=== PATIENT | female | born 1995 | race African-American/Black ===

== ENCOUNTER 2016-07-26 14:16 | Emergency (ER) | payer MEDICAID ==
[~2016-07-26] VITALS: Ht 165.1 cm; Wt 115.7 kg
[~2016-07-26 14:16] MED LIST: ALBU0.0939 IH
[2016-07-26 14:19] VITALS: BP 136/74
--- NOTE | 2016-07-26 14:26 | NUR ---
Patient ambulated to bed 08.
--- NOTE | 2016-07-26 14:26 | NUR ---
20/F BIB SELF C/O UPPER AND LOWER BACK PAIN X 2 WKS. PT STATED PT FELL FROM 2-3 STAIRS BY APT COMPLEX ; DENIES LOC , DYSURIA, DENIES INCONTINENCE. PT AMBULATORY WITH STEADY GAIT. HX OF SCOLIOSIS, ASTHMA. SKIN IS PINK/WARM/DRY; AAOX4, LUNGS CLEAR BL; HR EVEN AND REGULAR; PATIENT STATES PAIN OF 7/10 AT THIS TIME; PATIENT POSITIONED FOR COMFORT; HOB ELEVATED; BEDRAILS UP X2; BED DOWN. ER MD MADE AWARE OF PT STATUS.
--- NOTE | 2016-07-26 14:29 | NUR ---
Dr. Walker evaluating patient at bedside.
[2016-07-26] MEDS ORDERED: ONDANSETRON 4 MG ODT PO ONE (14:35)
[2016-07-26] MEDS ORDERED: CYCLOBENZAPRINE 10 MG TAB PO ONE (14:35)
[2016-07-26] MEDS ORDERED: ACETAMINOPHEN EXTRA STRENGTH 500 MG TAB PO ONE (14:35)
[2016-07-26] MEDS ORDERED: KETOROLAC 60 MG/2 ML VIAL IM ONE (14:35)
[2016-07-26 15:00] VITALS: BP 129/69
--- NOTE | 2016-07-26 15:00 | NUR ---
Patient discharged with v/s stable. Written and verbal after care instructions given and explained. Patient alert, oriented and verbalized understanding of instructions. Ambulatory with steady gait. All questions addressed prior to discharge. ID band removed. Patient advised to follow up with PMD. Rx of FLEXERIL given. Patient educated on indication of medication including possible reaction and side effects. Opportunity to ask questions provided and answered.
== END 2016-07-26 15:00 | disposition home or self-care (01) ==
LOC: MED 14:17
DX: S33.5XXA Sprain of ligaments of lumbar spine, initial encounter (principal); J45.909 Unspecified asthma, uncomplicated; Z88.1 Allergy status to other antibiotic agents; W01.0XXA Fall on same level from slipping, tripping and stumbling without subsequent striking against object, initial encounter; Y93.89 Activity, other specified; Y92.039 Unspecified place in apartment as the place of occurrence of the external cause; Y99.8 Other external cause status; R03.0 Elevated blood-pressure reading, without diagnosis of hypertension
CPT/HCPCS: 96372; 99284; J1885; S0119

== ENCOUNTER 2016-08-23 18:43 | Emergency (ER) | payer MEDICAID ==
[~2016-08-23] VITALS: Ht 165.1 cm; Wt 117.0 kg
[~2016-08-23 18:43] MED LIST changes: -ALBU0.0939 IH; +ALBUTEROL0.09 MG/A1 IH
[2016-08-23 18:56] VITALS: BP 149/95
--- NOTE | 2016-08-23 19:52 | NUR ---
TO ER BED 6
--- NOTE | 2016-08-23 20:26 | NUR ---
Patient being evaluated by physician at bedside with PA student.
--- NOTE | 2016-08-23 20:26 | NUR ---
20/F BIB FAMILY C/O CRAMPING TYPE PAIN TO ABDOMEN WITH NAUSEA AND VOMITING X 3 DAYS---X4 EPISODES OF EMESIS TODAY---DENIES DIARRHEA. PAIN 5/10 ACHING NON-RADIATING; AAOx4, PERRLA, BREATHING EVEN AND UNLABORED. ERMD NOTIFIED OF PATIENT STATUS.
--- NOTE | 2016-08-23 20:29 | NUR ---
FEMALE CHAPERONED FOR DR. VELARDE AND PA STUDENT DURING PELVIC EXAM
--- NOTE | 2016-08-23 21:10 | NUR ---
PT RESTING. VSS; PATIENT POSITIONED FOR COMFORT; HOB ELEVATED; BEDRAILS UP X2; BED DOWN. ER MD MADE AWARE OF PT STATUS.
--- NOTE | 2016-08-23 22:20 | NUR ---
PT RESTING. VSS; PATIENT POSITIONED FOR COMFORT; HOB ELEVATED; BEDRAILS UP X2; BED DOWN. ER MD MADE AWARE OF PT STATUS.
[2016-08-23 22:50] VITALS: BP 130/72
--- NOTE | 2016-08-23 22:50 | NUR ---
Patient discharged with v/s stable. Written and verbal after care instructions given and explained. Patient alert, oriented and verbalized understanding of instructions. Ambulatory with steady gait. All questions addressed prior to discharge. ID band removed. Patient advised to follow up with PMD. Rx of macrobid, flagyl, naprosyn given. Patient educated on indication of medication including possible reaction and side effects. Opportunity to ask questions provided and answered.
== END 2016-08-23 22:50 | disposition home or self-care (01) ==
LOC: MED 18:43
DX: N39.0 Urinary tract infection, site not specified (principal); A59.9 Trichomoniasis, unspecified; Z88.8 Allergy status to other drugs, medicaments and biological substances; J45.909 Unspecified asthma, uncomplicated; M41.9 Scoliosis, unspecified

== ENCOUNTER 2016-10-22 15:22 | Emergency (ER) | payer MEDICAID ==
[~2016-10-22] VITALS: Ht 165.1 cm; Wt 117.1 kg
[~2016-10-22 15:22] MED LIST changes: +ALBU0.0939 IH; -ALBUTEROL0.09 MG/A1 IH
[2016-10-22 15:37] VITALS: BP 126/78
[2016-10-22] MEDS ORDERED: KETOROLAC 60 MG/2 ML VIAL IM ONE (15:55)
[2016-10-22 16:27] VITALS: BP 126/78
== END 2016-10-22 16:26 | disposition home or self-care (01) ==
LOC: MED 15:22
DX: R05 Cough (principal); M54.6 Pain in thoracic spine; Z88.8 Allergy status to other drugs, medicaments and biological substances; J45.909 Unspecified asthma, uncomplicated
CPT/HCPCS: 96372; 99283; J1885

== ENCOUNTER 2016-11-28 21:07 | Emergency (ER) | payer MEDICAID ==
--- NOTE | 2016-11-28 21:25 | NUR ---
PATIENT LEFT WITHOUT BEING SEEN BY DR. COELHO . NO FURTHER CARE PROVIDED FOR PATIENT.
--- NOTE | 2016-11-28 21:35 | NUR ---
PT NAME WAS CALLED AGAIN BUT NO SHOW
== END 2016-11-28 21:25 | disposition left against medical advice (07) ==
LOC: MED 21:07
DX: M54.9 Dorsalgia, unspecified (principal); Z53.21 Procedure and treatment not carried out due to patient leaving prior to being seen by health care provider

== ENCOUNTER 2016-12-13 13:47 | Emergency (ER) | payer MEDICAID ==
[~2016-12-13] VITALS: Ht 165.1 cm; Wt 72.3 kg
[2016-12-13 13:56] VITALS: BP 114/81
--- NOTE | 2016-12-13 16:55 | NUR ---
PATIENT TO BED 7
--- NOTE | 2016-12-13 17:00 | NUR ---
21 F TO ED WITH C/O 5/10 INTERMITTENT SUPRAPUBIC SHARP/CRAMP PAIN X 1 WK WITH WHITE THICK VAGINAL DISCHARGE WITH ODOR; PT DENIES ANY N/V/D OR URINARY COMPLAINTS;SKIN IS PINK/WARM/DRY; AOX4 WITH EVEN AND STEADY GAIT; RR ARE EVEN AND UNLABORED; VSS; PATIENT POSITIONED FOR COMFORT; HOB ELEVATED; BED DOWN. ER MD MADE AWARE OF PT STATUS.
--- NOTE | 2016-12-13 17:45 | NUR ---
Patient discharged with v/s stable. Written and verbal after care instructions given and explained. Patient alert, oriented and verbalized understanding of instructions. Ambulatory with steady gait. All questions addressed prior to discharge. ID band removed. Patient advised to follow up with PMD. Rx of DIFLUCAN AND CIPRO given. Patient educated on indication of medication including possible reaction and side effects. Opportunity to ask questions provided and answered.
[2016-12-13 17:48] VITALS: BP 118/64
== END 2016-12-13 17:45 | disposition home or self-care (01) ==
LOC: MED 13:47
DX: N39.0 Urinary tract infection, site not specified (principal); B37.9 Candidiasis, unspecified; Z88.1 Allergy status to other antibiotic agents; J45.909 Unspecified asthma, uncomplicated
CPT/HCPCS: 81002; 81025; 99283

== ENCOUNTER 2017-03-23 13:22 | Emergency (ER) | payer MEDICAID ==
[~2017-03-23] VITALS: Ht 167.6 cm; Wt 122.9 kg
--- NOTE | 2017-03-23 13:47 | NUR ---
NO ANSWER IN ER LOBBY
[2017-03-23 13:49] VITALS: BP 129/73
--- NOTE | 2017-03-23 16:31 | NUR ---
Patient ambulated to bed 3. RN evaluating patient at bedside.
--- NOTE | 2017-03-23 16:32 | NUR ---
PATIENT PRESENTS TO ED WITH C/O PERSISTANT PRODUCTIVE COUGH, CHEST CONGESTION, SOB, X 1 WK FATIGUE, F/C ---ADDS FOAMY WHITE VAG DISCHARGE, FISHY ODOR---- HX---ASTHMA, SCOLIOSIS RX---ALBUTEROL . DENIES N/V/D; SKIN IS PINK/WARM/DRY; AAOX4 WITH EVEN AND STEADY GAIT; LUNGS CLEAR BL; HR EVEN AND REGULAR; PT DENIES ANY FEVER OR SOB AT THIS TIME; PATIENT STATES PAIN OF 8/10 AT THIS TIME; VSS; PATIENT POSITIONED FOR COMFORT; HOB ELEVATED; BEDRAILS UP X2; BED DOWN. ER MD MADE AWARE OF PT STATUS.
[2017-03-23] MEDS ORDERED: NACL 0.9% 2,000 ML IV ONE (17:40)
--- NOTE | 2017-03-23 19:11 | NUR ---
RECEIVED REPORT FROM VONDA RUIZ
[2017-03-23 19:30] VITALS: BP 113/63
--- NOTE | 2017-03-23 19:30 | NUR ---
Patient discharged with v/s stable. Written and verbal after care instructions given and explained. Patient verbalized understanding. Ambulatory with steady gait. All questions addressed prior to discharge. Advised to follow up with PMD.
--- NOTE | 2017-03-23 19:42 | NUR ---
Patient discharged with v/s stable. Written and verbal after care instructions given and explained. Patient alert, oriented and verbalized understanding of instructions. Ambulatory with steady gait. All questions addressed prior to discharge. ID band removed. Patient advised to follow up with PMD. Rx of FLAGYL AND MOTRIN given. Patient educated on indication of medication including possible reaction and side effects. Opportunity to ask questions provided and answered.
== END 2017-03-23 19:30 | disposition home or self-care (01) ==
LOC: MED 13:22
DX: J06.9 Acute upper respiratory infection, unspecified (principal); R30.0 Dysuria; Z88.6 Allergy status to analgesic agent
CPT/HCPCS: 71045; 81002; 81025; 96360; 99284; J7030

== ENCOUNTER 2017-09-26 22:25 | Emergency (ER) | payer MEDICAID ==
[~2017-09-26] VITALS: Ht 162.6 cm; Wt 127.1 kg
[2017-09-26 22:30] VITALS: BP 132/81
--- NOTE | 2017-09-26 22:34 | NUR ---
Patient ambulated to bed 2. RN evaluating patient at bedside.
--- NOTE | 2017-09-26 23:00 | NUR ---
PT BIB SELF C/O LUQ PAIN THAT RADIATES TO BACK FOR 2 DAYS W/ CONSTIPATION. ABD IS ROUND , SOFT, TENDER TO LUQ, ACTIVE BS X4. PT IS LAYING IN BED, IN NO APPARENT DISTRESS, WILL CONTINUE TO MONITOR. PMH ASTHMA, SCIATICA
--- NOTE | 2017-09-26 23:04 | NUR ---
Dr. Elder evaluating patient at bedside.
[2017-09-26] MEDS ORDERED: traMADol 50 MG TAB PO ONE (23:10)
--- NOTE | 2017-09-27 00:14 | NUR ---
Patient discharged with v/s stable. Written and verbal after care instructions given and explained. Patient alert, oriented and verbalized understanding of instructions. Ambulatory with steady gait. All questions addressed prior to discharge. ID band removed. Patient advised to follow up with PMD. Rx of mineral oil, miralax, tramadol given. Patient educated on indication of medication including possible reaction and side effects. Opportunity to ask questions provided and answered.
[2017-09-27 00:15] VITALS: BP 123/87
== END 2017-09-27 00:14 | disposition home or self-care (01) ==
LOC: MED 22:42
DX: K59.00 Constipation, unspecified (principal); R63.0 Anorexia; J45.909 Unspecified asthma, uncomplicated; Z79.899 Other long term (current) drug therapy; Z88.1 Allergy status to other antibiotic agents; Z88.8 Allergy status to other drugs, medicaments and biological substances
CPT/HCPCS: 74022; 81002; 81025; 99284

== ENCOUNTER 2017-11-30 20:15 | Emergency (ER) | payer MEDICAID ==
[~2017-11-30] VITALS: Ht 162.6 cm; Wt 128.4 kg
[2017-11-30 20:20] VITALS: BP 142/75
--- NOTE | 2017-11-30 20:36 | NUR ---
22 Y/O F W/C/O "RASH TO GROIN AND VAGINAL REGION X 1 WEEK." PT STATES SHES BEEN PUTTING A&D OINTMENT ON IT WITH NO REILIEF. PT ALSO STATES SHE WEARS "TIGHT LEGGINGS IN THE HEAT." PT DENIES ANY DISCHARGE. PT HAS RED BUMPS NOTED TO VAGINAL REGION. PT DENIES N/V/D; SKIN IS INTACT, PINK/WARM/DRY; AAOX4, PERRL, WITH EVEN AND STEADY GAIT; LUNGS CLEAR BL, BREATHING UNLABORED; HR EVEN AND REGULAR, BL PERIPHERAL PULSES PRESENT; BS ACTIVE X4, NO TENDERNESS TO PALPATION, NO HEPATOSPLENOMEGALLY PALPATED, RESONANT TO PERCUSSION; PT DENIES ANY FEVER, CP, SOB, OR COUGH AT THIS TIME; PT STATES 0/10 PAIN AT THIS TIME; VSS; PATIENT POSITIONED FOR COMFORT; HOB ELEVATED; BEDRAILS UP X2; BED DOWN.
--- NOTE | 2017-11-30 20:36 | NUR ---
PT AMBULATED TO BED 11 AT THIS TIME
[2017-11-30 21:22] VITALS: BP 138/72
--- NOTE | 2017-11-30 21:24 | NUR ---
Patient discharged with v/s stable. Written and verbal after care instructions given and explained. Patient alert, oriented and verbalized understanding of instructions. Ambulatory with steady gait. All questions addressed prior to discharge. ID band removed. Patient advised to follow up with PMD. Rx of NYSTATIN POWDER, NYSTATIN CREAM given. Patient educated on indication of medication including possible reaction and side effects. Opportunity to ask questions provided and answered.
== END 2017-11-30 21:22 | disposition home or self-care (01) ==
LOC: MED 20:15
DX: B37.49 Other urogenital candidiasis (principal); J45.909 Unspecified asthma, uncomplicated; Z88.6 Allergy status to analgesic agent; Z88.1 Allergy status to other antibiotic agents
CPT/HCPCS: 99283

== ENCOUNTER 2019-02-15 21:54 | Emergency (ER) | payer MEDICAID ==
[~2019-02-15] VITALS: Ht 162.6 cm; Wt 127.0 kg
[2019-02-15 22:01] VITALS: BP 138/76
--- NOTE | 2019-02-15 22:15 | NUR ---
23 Y/O FEMALE PRESENTS TO ED, C/O VAGINAL BLEED X2 WEEKS. PT STATES BLEEDING STARTED 2 WEEKS AGO AND WORSENED TODAY. STATES BLOOD IS DARK WITH CLOTS. PT C/O LOWER ABDOMINAL PAIN 8/10, WORSENING DURING MOVEMENT. PT STATES BEING FOR 1 MONTH NOW, HAS CRAMPING. ERMD MADE AWARE. WILL CONTINUE TO MONITOR.
--- NOTE | 2019-02-15 22:25 | NUR ---
ULTRASOUND AT BEDSIDE
[2019-02-15 22:56] LABS: BASOPHILS # (AUTO) 0.1 K/uL (0.00-0.22); BASOPHILS % (AUTO) 0.7 % (0.0-2.0); EOSINOPHILS # (AUTO) 0.1 K/uL (0-0.4); EOSINOPHILS % (AUTO) 0.6 % (0.0-4.0); HEMATOCRIT 35.5 % (36-48); HEMOGLOBIN 11.3 g/dL (12.0-16.0); LYMPHOCYTES # (AUTO) 2.5 K/uL (2.5-16.5); MEAN CORPUSCULAR HEMOGLOBIN 28 pg (27-31); MEAN CORPUSCULAR HGB CONC 32 g/dL (33-37); MEAN CORPUSCULAR VOLUME 87.4 fL (80-94); MONOCYTES # (AUTO) 0.6 K/uL (0.8-1.0); MONOCYTES % (AUTO) 4.7 % (1.7-9.3); NEUTROPHILS # (AUTO) 8.6 K/uL (1.8-7.7); PLATELET COUNT (AUTO) 278 K/uL (140-450); RED BLOOD CELL COUNT(AUTO) 4.06 MIL/uL (4.20-5.40); RED CELL DISTRIBUTION WIDTH 14.7 % (11.6-13.7); WHITE BLOOD COUNT (AUTO) 11.8 K/uL (4.8-10.8)
[2019-02-15 23:08] LABS: ALBUMIN 3.6 g/dL (3.4-5.0); CARBON DIOXIDE 30.6 mmol/L (21-32); CREATININE 0.8 mg/dL (0.6-1.3); POTASSIUM 3.6 mmol/L (3.5-5.1); TOTAL BILIRUBIN 0.2 mg/dL (0.0-1.0)
--- NOTE | 2019-02-16 01:00 | NUR ---
PT REFUSING TO COLLECT URINE SAMPLE AT THIS TIME, PT STATED THAT SHE IS UNABLE TO DUE TO HAVING VAGINAL BLEEDING. DR OSMAN MADE AWARE, OK NOT TO GET URINE SAMPLE. PT SET UP FOR PELVIC EXAM, AWAITING DR OSMAN AT THIS TIME.
[2019-02-16 02:00] VITALS: BP 121/77
--- NOTE | 2019-02-16 02:00 | NUR ---
PT DISCHARGED WITH PAPERWORK. NO MEDICATION RX PROVIDED. EDUCATED PT REGARDING D/C DIAGNOSIS. PT VERBALIZED UNDERSTANDING. TOLD PT WHEN TO FOLLOW UP WITH PCP AND WHEN TO RETURN TO ED. PT STABLE CONDITION. PT DENIED PELVIC EXAM. ALL QUESTIONS ANSWERED.
== END 2019-02-16 02:00 | disposition home or self-care (01) ==
LOC: MED 21:54
DX: O20.0 Threatened abortion (principal); O99.511 Diseases of the respiratory system complicating pregnancy, first trimester; J45.909 Unspecified asthma, uncomplicated; Z3A.01 Less than 8 weeks gestation of pregnancy; Z79.51 Long term (current) use of inhaled steroids; Z98.890 Other specified postprocedural states; Z88.6 Allergy status to analgesic agent; Z88.1 Allergy status to other antibiotic agents
CPT/HCPCS: 36415; 76817; 80053; 84702; 85025; 86900; 86901; 99284; Q0092

== ENCOUNTER 2019-02-17 14:25 | Emergency (ER) | payer MEDICAID ==
[~2019-02-17] VITALS: Ht 162.6 cm; Wt 127.0 kg
[2019-02-17 14:47] VITALS: BP 134/64
--- NOTE | 2019-02-17 14:59 | NUR ---
BIB SELF FOR POSSIBLE MISCARRIAGE W/ C/O CONTINOUS VAGINAL BLEEDING AND LOWER ABDOMINAL CRAMPING PAIN SINCE LAST SEEN 2 DAYS AGO. A2. HX: ASTHMA, SCOLIOSIS. PATIENT STATES PAIN OF 6/10 AT THIS TIME.PATIENT POSITIONED FOR COMFORT; HOB ELEVATED; BEDRAILS UP X1; BED DOWN. ER MD MADE AWARE OF PT STATUS.
--- NOTE | 2019-02-17 16:50 | NUR ---
Patient being reevaluated by DR PONCE at bedside.
--- NOTE | 2019-02-17 16:50 | NUR ---
Babatunde adan in [facility] - 02/17/19 at 1654 by MED1 Patient being reevaluated by DR PONCE at bedside.
[2019-02-17 16:54] VITALS: BP 119/61
== END 2019-02-17 16:54 | disposition home or self-care (01) ==
LOC: MED 14:25
DX: O03.9 Complete or unspecified spontaneous abortion without complication (principal); R03.0 Elevated blood-pressure reading, without diagnosis of hypertension; J45.909 Unspecified asthma, uncomplicated; Z79.899 Other long term (current) drug therapy
CPT/HCPCS: 36415; 84702; 99283

== ENCOUNTER 2019-09-12 17:02 | Emergency (ER) | payer MEDICAID, SELFPAY ==
[~2019-09-12] VITALS: Ht 170.2 cm; Wt 88.5 kg
[2019-09-12 17:31] VITALS: BP 98/49
--- NOTE | 2019-09-12 17:40 | NUR ---
PT AMBULATED TO ER BED 09
--- NOTE | 2019-09-12 17:42 | NUR ---
23 Y/O FEMALE C/O COUGH/HEADACHE X2 DAYS. PT DENIES SOB/FEVER. PT STATES SHE HAD A HEADACHE 2 DAYS AGO BUT NO PAIN AT THIS MOMENT. STATES SHE GOT TESTED FOR COVID ON FRIDAY. PT IS 4 MONTHS . PT STATES HER AND HER BOYFRIEND HAVE HAS COUGHS FOR 2 DAYS. DENIES ANY CHEST PAIN/ RESP EVEN AND UNLABORED. LUNG SOUNDS CLEAR IN BILAT LOBES. NO PMH
--- NOTE | 2019-09-12 18:40 | NUR ---
PT URINATED ON COMMODE IN ROOM
[2019-09-12 18:59] VITALS: BP 101/57
--- NOTE | 2019-09-12 18:59 | NUR ---
Patient discharged with v/s stable. Written and verbal after care instructions given and explained. Patient alert, oriented and verbalized understanding of instructions. Ambulatory with steady gait. All questions addressed prior to discharge. ID band removed. Patient advised to follow up with PMD. Rx of BENADRYL, ACETAMINOPHEN given. Patient educated on indication of medication including possible reaction and side effects. Opportunity to ask questions provided and answered.
== END 2019-09-12 18:59 | disposition home or self-care (01) ==
LOC: EEVIPCON 17:02 → MED 17:02
DX: B34.9 Viral infection, unspecified (principal); Z20.828 Contact with and (suspected) exposure to other viral communicable diseases; J45.909 Unspecified asthma, uncomplicated; Z88.1 Allergy status to other antibiotic agents; Z88.6 Allergy status to analgesic agent; Z79.899 Other long term (current) drug therapy
CPT/HCPCS: 81002; 99282

== ENCOUNTER 2020-02-02 07:35 | Inpatient (IN) | payer MEDICAID, SELFPAY ==
[~2020-02-02] VITALS: Ht 162.6 cm; Wt 123.8 kg
[2020-02-02 08:00] VITALS: BP 131/68
[2020-02-02] MEDS ORDERED: METHYLERGONOVINE 0.2 MG/ML AMP IM PRN ×2 (08:10→15:10)
[2020-02-02] MEDS ORDERED: OXYTOCIN 20 UNITS in LACTATED RINGERS 1,000 ML IV SCH (08:10)
[2020-02-02] MEDS ORDERED: NALBUPHINE 10 MG/ML AMP IVP PRN (08:10)
[2020-02-02] MEDS ORDERED: LACTATED RINGERS 1,000 ML IV SCH (08:10)
[2020-02-02] MEDS ORDERED: CARBOPROST 250 MCG/ML AMP IM PRN (08:10)
--- NOTE | 2020-02-02 08:25 | NUR ---
PATIENT HAS BEEN SCREENED AND CATEGORIZED LOW NUTRITION RISK. PATIENT WILL BE SEEN WITHIN 7 DAYS OF ADMISSION. 02/08/[address]
[2020-02-02] MEDS ORDERED: AMPICILLIN 2,000 MG in NACL 0.9% MINI-BAG PLUS 100 ML IV SCH (08:30)
[2020-02-02 09:47] LABS: BASOPHILS % (AUTO) 0.2 % (0.0-2.0); HEMOGLOBIN 10.6 g/dL (12.0-16.0); LYMPHOCYTES # (AUTO) 1.1 K/uL (2.5-16.5); LYMPHOCYTES % (AUTO) 7.5 % (20.5-51.1); MEAN CORPUSCULAR HEMOGLOBIN 29 pg (27-31); MEAN CORPUSCULAR HGB CONC 32 g/dL (33-37); MEAN CORPUSCULAR VOLUME 89.6 fL (80-94); MONOCYTES # (AUTO) 0.4 K/uL (0.8-1.0); NEUTROPHILS # (AUTO) 13.3 K/uL (1.8-7.7); NEUTROPHILS % (AUTO) 89.3 % (42.2-75.2); PLATELET COUNT (AUTO) 297 K/uL (140-450); RED BLOOD CELL COUNT(AUTO) 3.68 MIL/uL (4.20-5.40); RED CELL DISTRIBUTION WIDTH 14.3 % (11.6-13.7); WHITE BLOOD COUNT (AUTO) 14.9 K/uL (4.8-10.8)
[2020-02-02] MEDS ORDERED: ROPIVACAINE 0.2%/NS PREMIX 200 ML EPI ONE (09:52)
[2020-02-02 10:14] LABS: APPEARANCE,URINE CLOUDY (CLEAR); BILIRUBIN,URINE 1+ (NEGATIVE); BLOOD, URINE TRACE-I (NEGATIVE); COLOR,URINE BROWN (YELLOW); LEUKOCYTE ESTERASE ,URINE NEGATIVE (NEGATIVE); NITRITE, URINE NEGATIVE (NEGATIVE); PH,URINE 6.5 (5.0-9.0); UGLUCOSE NEGATIVE (NEGATIVE)
[2020-02-02 10:24] LABS: RBC,URINE 0-5 /HPF (0-5); WBC,URINE 0-5 /HPF (0-5)
[2020-02-02 11:42] LABS: ALBUMIN 2.6 g/dL (3.4-5.0); CARBON DIOXIDE 22.9 mmol/L (21-32); CREATININE 0.6 mg/dL (0.6-1.3); POTASSIUM 3.9 mmol/L (3.5-5.1); TOTAL BILIRUBIN 0.3 mg/dL (0.0-1.0)
[2020-02-02] MEDS ORDERED: OXYTOCIN 20 UNITS/LR PREMIX 1,000 ML IV ONE (12:19)
[2020-02-02] MEDS ORDERED: AMPICILLIN 1,000 MG in NACL 0.9% MINI-BAG PLUS 50 ML IV SCH (12:30)
[2020-02-02 13:11] LABS: BARBITURATE, URINE NEGATIVE ng/ml (NEG <=200); BENZODIAZEPINE, URINE NEGATIVE ng/mL (NEG <=200); CANNABINOID, URINE NEGATIVE ng/mL (NEG <=50); COCAINE, URINE NEGATIVE ng/mL (NEG <=300); OPIATE, URINE NEGATIVE ng/mL (NEG <=2000); PHENCYCLIDINE SCREEN,URINE NEGATIVE ng/mL (NEG <=25)
[2020-02-02] MEDS ORDERED: IBUPROFEN 800 MG TAB PO PRN (15:10)
[2020-02-02] MEDS ORDERED: BENZOCAINE/MENTHOL 20%-0.5% 60 GM CAN TP PRN (15:10)
[2020-02-02] MEDS ORDERED: OXYTOCIN 10 UNITS/ML VIAL IM PRN (15:10)
[2020-02-02] MEDS ORDERED: METHYLERGONOVINE 0.2 MG TAB PO PRN (15:10)
[2020-02-02] MEDS ORDERED: SODIUM PHOSPHATE 118 ML ENEM RC PRN (15:10)
[2020-02-02] MEDS ORDERED: HYDROcodone/APAP 5/325 MG 1 TAB TAB PO PRN (15:10)
[2020-02-02] MEDS ORDERED: oxyCODONE/APAP 5/325 MG 1 TAB TAB PO PRN (15:10)
[2020-02-02] MEDS ORDERED: TEMAZEPAM 15 MG CAP PO PRN (15:10)
[2020-02-02] MEDS ORDERED: DOCUSATE SOD/SENNA 50/8.6 MG 1 TAB PO SCH (21:00)
[2020-02-03 08:29] LABS: HEMOGLOBIN 9.7 g/dL (12.0-16.0)
[2020-02-03 09:53] LABS: HEPATITIS B SURFACE ANTIGEN Negative (Negative)
== END 2020-02-03 16:00 | disposition home or self-care (01) | DRG 560 ==
LOC: MLD 07:35 → OBSVTOIN 08:19 → EEVIPCON 08:19 → MFCC 18:00
PROVIDERS: ADMIT Obstetrics & Gynecology; ATTEND Obstetrics & Gynecology
PROC: 10D07Z6 Extraction of Products of Conception, Vacuum, Via Natural or Artificial Opening (ICD-10-PCS; principal; 2020-02-02)
PROC: 10907ZC Drainage of Amniotic Fluid, Therapeutic from Products of Conception, Via Natural or Artificial Opening (ICD-10-PCS; 2020-02-02)
PROC: 3E0R3BZ Introduction of Anesthetic Agent into Spinal Canal, Percutaneous Approach (ICD-10-PCS; 2020-02-02)
PROC: 00HU33Z Insertion of Infusion Device into Spinal Canal, Percutaneous Approach (ICD-10-PCS; 2020-02-02)
DX: O66.5 Attempted application of vacuum extractor and forceps (principal); O77.0 Labor and delivery complicated by meconium in amniotic fluid; E66.01 Morbid (severe) obesity due to excess calories; Z37.0 Single live birth; O99.214 Obesity complicating childbirth; Z20.828 Contact with and (suspected) exposure to other viral communicable diseases; Z88.5 Allergy status to narcotic agent; Z88.1 Allergy status to other antibiotic agents; Z3A.39 39 weeks gestation of pregnancy
CPT/HCPCS: 36415; 59409; 80053; 80305; 81001; 85018; 85025; 86592; 86762; 86870; 86886; 86900; 86901; 87340; 87653-90; G0378; J2300; J2590; J2795; J7120

== ENCOUNTER 2020-03-30 14:02 | Emergency (ER) | payer MEDICAID, SELFPAY ==
[~2020-03-30] VITALS: Ht 162.6 cm; Wt 122.5 kg
[2020-03-30 14:09] VITALS: BP 140/82
--- NOTE | 2020-03-30 14:22 | NUR ---
PATIENT AMBULATED TO BED 6.
[2020-03-30 15:17] LABS: BASOPHILS % (AUTO) 0.3 % (0.0-2.0); EOSINOPHILS % (AUTO) 0.3 % (0.0-4.0); HEMATOCRIT 36.2 % (36-48); HEMOGLOBIN 11.4 g/dL (12.0-16.0); LYMPHOCYTES # (AUTO) 1.4 K/uL (2.5-16.5); MEAN CORPUSCULAR HEMOGLOBIN 28 pg (27-31); MEAN CORPUSCULAR HGB CONC 32 g/dL (33-37); MEAN CORPUSCULAR VOLUME 88.9 fL (80-94); MONOCYTES # (AUTO) 0.6 K/uL (0.8-1.0); MONOCYTES % (AUTO) 4.6 % (1.7-9.3); NEUTROPHILS # (AUTO) 10.5 K/uL (1.8-7.7); NEUTROPHILS % (AUTO) 83.8 % (42.2-75.2); PLATELET COUNT (AUTO) 301 K/uL (140-450); RED BLOOD CELL COUNT(AUTO) 4.08 MIL/uL (4.20-5.40); RED CELL DISTRIBUTION WIDTH 14.4 % (11.6-13.7); WHITE BLOOD COUNT (AUTO) 12.6 K/uL (4.8-10.8)
[2020-03-30 15:23] LABS: APPEARANCE,URINE CLEAR (CLEAR); BILIRUBIN,URINE 1+ (NEGATIVE); BLOOD, URINE 3+ (NEGATIVE); COLOR,URINE YELLOW (YELLOW); LEUKOCYTE ESTERASE ,URINE NEGATIVE (NEGATIVE); NITRITE, URINE NEGATIVE (NEGATIVE); UGLUCOSE NEGATIVE (NEGATIVE)
[2020-03-30 15:32] LABS: RBC,URINE 50-80 /HPF (0-5); WBC,URINE 0-5 /HPF (0-5)
[2020-03-30 15:42] LABS: ALBUMIN 3.3 g/dL (3.4-5.0); ANION GAP 12.5 (8-16); CARBON DIOXIDE 27.3 mmol/L (21-32); CREATININE 0.8 mg/dL (0.6-1.3); POTASSIUM 3.8 mmol/L (3.5-5.1); TOTAL BILIRUBIN 0.4 mg/dL (0.0-1.0)
[2020-03-30] MEDS ORDERED: DICYCLOMINE HCL LIQUID 20 MG, ALUMINUM HYD/MAG/SIMETHICONE 30 ML, LIDOCAINE VISCOUS 2% ... PO ONE ×3 (15:50)
[2020-03-30] MEDS ORDERED: ALUMINUM HYD/MAG/SIMETHICONE 30 ML UDC ONE (16:03)
[2020-03-30] MEDS ORDERED: LIDOCAINE VISCOUS 2% 20 ML UDC ONE (16:03)
[2020-03-30] MEDS ORDERED: DICYCLOMINE HCL LIQUID 10 MG/5 ML UDC ONE (16:04)
[2020-03-30 17:39] VITALS: BP 137/78
--- NOTE | 2020-03-30 17:40 | NUR ---
Patient discharged with v/s stable. Written and verbal after care instructions given and explained. Patient alert, oriented and verbalized understanding of instructions. Ambulatory with steady gait. All questions addressed prior to discharge. ID band removed. Patient advised to follow up with PMD. Rx of MARIAN DAMON/NICOLE given. Patient educated on indication of medication including possible reaction and side effects. Opportunity to ask questions provided and answered. Addendum: 03/30/20 at 1800 by MEDBD IV REMOVED BEFORE DEPARTURE, PRESSURE DRESSING APPLIED AND EFFECTIVE NOTED.
== END 2020-03-30 17:40 | disposition home or self-care (01) ==
LOC: MED 14:02
DX: N93.8 Other specified abnormal uterine and vaginal bleeding (principal); J45.909 Unspecified asthma, uncomplicated; F41.9 Anxiety disorder, unspecified; Z79.899 Other long term (current) drug therapy; Z98.890 Other specified postprocedural states; Z88.6 Allergy status to analgesic agent; Z88.1 Allergy status to other antibiotic agents
CPT/HCPCS: 36415; 76705; 76856; 80053; 81001; 83690; 84702; 85025; 99285

== ENCOUNTER 2021-02-22 12:39 | Emergency (ER) | payer MEDICAID, SELFPAY ==
[~2021-02-22] VITALS: Ht 162.6 cm; Wt 127.0 kg
[2021-02-22 13:01] VITALS: BP 143/92
--- NOTE | 2021-02-22 13:42 | NUR ---
25/F PRESENTS TO ED WITH C/O COUGH AND SORE THROAT X3 DAYS. PATIENT STATES HER AND KIDS HAVE BEEN SICK WITH THE SAME SYMPTOMS THE LAST FEW DAYS AND STATES "I THINK THEY GOT ME SICK." DENIES CP, SOB, FEVERS. REPORTS TAKING NYQUIL WITH NO RELIEF.
[2021-02-22] MEDS ORDERED: PROM118S5 PO (14:14)
[2021-02-22 15:19] VITALS: BP 143/92
--- NOTE | 2021-02-22 15:20 | NUR ---
Patient discharged with v/s stable. Written and verbal after care instructions given and explained. Patient alert, oriented and verbalized understanding of instructions. Ambulatory with steady gait. All questions addressed prior to discharge. ID band removed. Patient advised to follow up with PMD. Rx of PROMETHAZINE given. Patient educated on indication of medication including possible reaction and side effects. Opportunity to ask questions provided and answered. PT HAS CALM DEMEANOR, UNLABORED BREATHING W/ EQUAL CHEST RISE/FALL, PT AMBULATES W/O ASSISTANCE.
== END 2021-02-22 15:20 | disposition home or self-care (01) ==
LOC: MED 12:39
DX: J06.9 Acute upper respiratory infection, unspecified (principal); Z20.822 Contact with and (suspected) exposure to COVID-19; J45.909 Unspecified asthma, uncomplicated; Z88.6 Allergy status to analgesic agent; Z88.8 Allergy status to other drugs, medicaments and biological substances; Z79.899 Other long term (current) drug therapy
CPT/HCPCS: 99283; U0003

== ENCOUNTER 2021-07-11 09:53 | Emergency (ER) | payer MEDICAID ==
[~2021-07-11] VITALS: Ht 162.6 cm; Wt 127.0 kg
[~2021-07-11 09:53] MED LIST changes: +PROM118S5 PO
[2021-07-11 10:01] VITALS: BP 157/91
--- NOTE | 2021-07-11 10:02 | NUR ---
PT AMBULATED TO BED 1
--- NOTE | 2021-07-11 10:02 | NUR ---
Babatunde adan in [facility] - 07/11/21 at 1221 by BILLY PT AMBULATED TO BED 4
--- NOTE | 2021-07-11 10:26 | NUR ---
25 Y/O FEMALE BIB SELF C/O MID TO LOWER BACK PAIN AND ABD PAIN X YESTERDAY. PRESSURE TYPE OF PAIN RATED 8/10. PT DENIES ANY ALLEVIATING OR AGGRAVATING FACTORS. ABDOMEN IS TENDER TO PALPATION. PT DENIES SYURIA/HEMATURIA. SANIPRACTIC PHYSICIAN DENIES VAGINAL DISCHARGE. DENIES ANY NAUSEA/VOMITING. PT DENIES CHEST PAIN, SOB, FEVER OR CHILLS. MEDHX: SCOLOSIS, ASTHMA ALLERGIES: IBUPROFEN, VANCOMYCIN
[2021-07-11] MEDS ORDERED: ACET-8386 PO (14:08)
[2021-07-11 14:19] VITALS: BP 139/98
--- NOTE | 2021-07-11 14:22 | NUR ---
Patient discharged with v/s stable. Written and verbal after care instructions given and explained for Acute Back Pain. Patient alert, oriented and verbalized understanding of instructions. Ambulatory with steady gait. All questions addressed prior to discharge. ID band removed. Patient advised to follow up with PMD. Rx of Hydrocodone/Acetaminophen given. Patient educated on indication of medication including possible reaction and side effects. Opportunity to ask questions provided and answered.
== END 2021-07-11 14:25 | disposition home or self-care (01) ==
LOC: MED 09:53
DX: M54.50 Low back pain, unspecified (principal); R10.30 Lower abdominal pain, unspecified; J45.909 Unspecified asthma, uncomplicated; Z79.899 Other long term (current) drug therapy; Z88.6 Allergy status to analgesic agent; Z88.8 Allergy status to other drugs, medicaments and biological substances
CPT/HCPCS: 36415; 81002; 81025; 84702; 99283

== ENCOUNTER 2022-08-02 06:06 | Inpatient (IN) | payer MEDICAID ==
[~2022-08-02] VITALS: Ht 162.6 cm; Wt 131.5 kg
[~2022-08-02 06:06] MED LIST changes: +ACET-8905 PO
[2022-08-02] MEDS ORDERED: PNV91TAB8 PO (07:31)
[2022-08-02] MEDS ORDERED: LACTATED RINGERS 500 ML IV ONE (07:35)
[2022-08-02] MEDS ORDERED: NALBUPHINE 10 MG/ML AMP IVP PRN (07:35)
[2022-08-02] MEDS ORDERED: METHYLERGONOVINE 0.2 MG/ML AMP IM PRN ×2 (07:35→11:15)
[2022-08-02] MEDS ORDERED: OXYTOCIN 10 UNITS/ML VIAL IM SCH (07:35)
[2022-08-02] MEDS ORDERED: CARBOPROST 250 MCG/ML AMP IM PRN (07:35)
[2022-08-02] MEDS ORDERED: ONDANSETRON 4 MG/2 ML VIAL IVP PRN (07:45)
[2022-08-02 08:44] VITALS: BP 156/82
[2022-08-02] MEDS: LACTATED RINGERS 1,000 ML IV SCH ×2 (08:56→09:00)
--- NOTE | 2022-08-02 09:15 | NUR ---
PATIENT HAS BEEN SCREENED AND CATEGORIZED LOW NUTRITION RISK. PATIENT WILL BE SEEN WITHIN 7 DAYS OF ADMISSION. 08/09/[address]
[2022-08-02 09:24] LABS: BASOPHILS % (AUTO) 0.2 % (0.0-2.0); HEMATOCRIT 29.9 % (36-48); HEMOGLOBIN 9.7 g/dL (12.0-16.0); LYMPHOCYTES # (AUTO) 1.1 K/uL (2.5-16.5); LYMPHOCYTES % (AUTO) 6.5 % (20.5-51.1); MEAN CORPUSCULAR HEMOGLOBIN 28 pg (27-31); MEAN CORPUSCULAR HGB CONC 32 g/dL (33-37); MEAN CORPUSCULAR VOLUME 87.1 fL (80-94); MONOCYTES # (AUTO) 0.5 K/uL (0.8-1.0); MONOCYTES % (AUTO) 3.1 % (1.7-9.3); NEUTROPHILS # (AUTO) 14.7 K/uL (1.8-7.7); NEUTROPHILS % (AUTO) 90.2 % (42.2-75.2); PLATELET COUNT (AUTO) 286 K/uL (140-450); RED BLOOD CELL COUNT(AUTO) 3.43 MIL/uL (4.20-5.40); WHITE BLOOD COUNT (AUTO) 16.3 K/uL (4.8-10.8)
[2022-08-02 10:01] LABS: PROTHROMBIN TIME 9.2 secs (10.8-13.4)
[2022-08-02 10:09] LABS: ALBUMIN 2.4 g/dL (3.4-5.0); ANION GAP 11.3 (8-16); CARBON DIOXIDE 26.3 mmol/L (21-32); CREATININE 0.5 mg/dL (0.6-1.3); POTASSIUM 3.6 mmol/L (3.5-5.1); TOTAL BILIRUBIN 0.2 mg/dL (0.0-1.0)
[2022-08-02] MEDS ORDERED: OXYTOCIN 20 UNITS/LR PREMIX 1,000 ML IV ONE (10:12)
[2022-08-02 10:41] LABS: APPEARANCE,URINE CLEAR (CLEAR); BILIRUBIN,URINE 1+ (NEGATIVE); BLOOD, URINE TRACE-I (NEGATIVE); COLOR,URINE ORANGE (YELLOW); LEUKOCYTE ESTERASE ,URINE TRACE (NEGATIVE); NITRITE, URINE NEGATIVE (NEGATIVE); PH,URINE 6.5 (5.0-9.0); UGLUCOSE TRACE (NEGATIVE)
[2022-08-02] MEDS ORDERED: OXYTOCIN 10 UNITS/ML VIAL IM PRN (11:15)
[2022-08-02] MEDS ORDERED: TEMAZEPAM 15 MG CAP PO PRN (11:15)
[2022-08-02] MEDS ORDERED: BENZOCAINE/MENTHOL 20%-0.5% 60 GM CAN TP PRN (11:15)
[2022-08-02] MEDS ORDERED: IBUPROFEN 800 MG TAB PO PRN (11:15)
[2022-08-02] MEDS ORDERED: METHYLERGONOVINE 0.2 MG TAB PO PRN (11:15)
[2022-08-02 11:17] LABS: RBC,URINE 0-5 /HPF (0-5)
[2022-08-02] MEDS ORDERED: OXYTOCIN 20 UNITS in LACTATED RINGERS 1,000 ML IV SCH (12:15)
[2022-08-02] MEDS: oxyCODONE/APAP 5/325 MG 1 TAB TAB PO PRN ×3 (14:24→19:51)
[2022-08-02] MEDS ORDERED: DOCUSATE SOD/SENNA 50/8.6 MG 1 TAB PO SCH (21:00)
[2022-08-03 05:53] LABS: HEMATOCRIT 22.7 % (36-48); HEMOGLOBIN 7.5 g/dL (12.0-16.0)
[2022-08-03] MEDS: oxyCODONE/APAP 5/325 MG 1 TAB TAB PO PRN ×2 (06:09→17:14)
== END 2022-08-03 20:30 | disposition home or self-care (01) | DRG 560 ==
LOC: MLD 06:06 → OBSVTOIN 10:00 → MFCC 13:40
PROVIDERS: ADMIT Obstetrics & Gynecology; ATTEND Obstetrics & Gynecology
PROC: 10E0XZZ Delivery of Products of Conception, External Approach (ICD-10-PCS; principal; 2022-08-02)
DX: O80 Encounter for full-term uncomplicated delivery (principal); Z37.0 Single live birth; R71.0 Precipitous drop in hematocrit; Z20.822 Contact with and (suspected) exposure to COVID-19; Z3A.39 39 weeks gestation of pregnancy
CPT/HCPCS: 36415; 59409; 80053; 81001; 85018; 85025; 85610; 85730; 86592; 86886; 86900; 86901; 90715; J2300; J2405; J2590

== ENCOUNTER 2022-10-18 06:44 | Emergency (ER) | payer MEDICAID ==
[~2022-10-18] VITALS: Ht 162.6 cm; Wt 93.9 kg
[~2022-10-18 06:44] MED LIST changes: -ACET-8905 PO; +PNV91TAB8 PO; -PROM118S5 PO
[2022-10-18 06:50] VITALS: BP 150/80; PULSE 78; RESP 16; TEMP 97.6; O2SAT 100
--- NOTE | 2022-10-18 06:50 | NUR ---
to bed ambulatory
[2022-10-18] MEDS ORDERED: ACETAMINOPHEN EXTRA STRENGTH 500 MG TAB PO ONE (07:10)
--- NOTE | 2022-10-18 07:24 | NUR ---
PT HAS BEEN MEDICATED PER PROVIDERS ORDERS.
[2022-10-18 07:52] LABS: APPEARANCE,URINE CLEAR (CLEAR); BILIRUBIN,URINE NEGATIVE (NEGATIVE); BLOOD, URINE NEGATIVE (NEGATIVE); COLOR,URINE YELLOW (YELLOW); LEUKOCYTE ESTERASE ,URINE NEGATIVE (NEGATIVE); NITRITE, URINE NEGATIVE (NEGATIVE); PH,URINE 7.5 (5.0-9.0); UGLUCOSE NEGATIVE (NEGATIVE)
[2022-10-18 07:53] LABS: BASOPHILS % (AUTO) 0.5 % (0.0-2.0); EOSINOPHILS % (AUTO) 0.5 % (0.0-4.0); HEMATOCRIT 25.4 % (36-48); HEMOGLOBIN 7.9 g/dL (12.0-16.0); LYMPHOCYTES # (AUTO) 1.2 K/uL (2.5-16.5); LYMPHOCYTES % (AUTO) 15.6 % (20.5-51.1); MEAN CORPUSCULAR HEMOGLOBIN 23 pg (27-31); MEAN CORPUSCULAR HGB CONC 31 g/dL (33-37); MEAN CORPUSCULAR VOLUME 72.3 fL (80-94); MONOCYTES # (AUTO) 0.3 K/uL (0.8-1.0); MONOCYTES % (AUTO) 4.3 % (1.7-9.3); NEUTROPHILS # (AUTO) 6.1 K/uL (1.8-7.7); NEUTROPHILS % (AUTO) 79.1 % (42.2-75.2); PLATELET COUNT (AUTO) 344 K/uL (140-450); RED BLOOD CELL COUNT(AUTO) 3.51 MIL/uL (4.20-5.40); RED CELL DISTRIBUTION WIDTH 18.8 % (11.6-13.7); WHITE BLOOD COUNT (AUTO) 7.7 K/uL (4.8-10.8)
[2022-10-18 08:05] LABS: ALBUMIN 3.1 g/dL (3.4-5.0); ANION GAP 12.5 (8-16); CARBON DIOXIDE 26.5 mmol/L (21-32); CREATININE 0.8 mg/dL (0.6-1.3); TOTAL BILIRUBIN 0.1 mg/dL (0.0-1.0)
--- NOTE | 2022-10-18 08:46 | NUR ---
26 Y/O F PATIENT PRESENTS TO ED WITH PERIUMBILICAL AND EPIGASTRIC PAIN FOR TWO WEEKS. PT STATES PAIN HAS GOTTEN WORSE IN THE LAST 24 HOURS PT STATES. PT STATES SHE HAS SYMPTOMS OF NAUSEA AND CONSITIPATION. PT DENIES VOMITING; SKIN IS PINK/WARM/DRY; AAOX4 WITH EVEN AND STEADY GAIT; LUNGS CLEAR BL; HR EVEN AND REGULAR; PT DENIES ANY FEVER, CP, SOB, OR COUGH AT THIS TIME; PATIENT STATES PAIN OF 10/10 AT THIS TIME; VSS; PATIENT POSITIONED FOR COMFORT; HOB ELEVATED; BEDRAILS UP X2; CALL LIGHT WITH IN REACH,BED DOWN. ER MD MADE AWARE OF PT STATUS. PMHX SCOLIOSIS SURGIAL HX ETOPIC ALLERGIES VANCO IBRUPROPHEN
--- NOTE | 2022-10-18 09:00 | NUR ---
PT STATES SHES STILL IN PAIN. PT STATES PAIN IS AT A LEVEL 8. PROVIDER MADE AWARE.
[2022-10-18 09:10] VITALS: O2SAT 100
[2022-10-18] MEDS ORDERED: NACL 0.9% 1,000 ML IV ONE (09:10)
[2022-10-18] MEDS ORDERED: DICYCLOMINE HCL LIQUID 20 MG, ALUMINUM HYD/MAG/SIMETHICONE 30 ML, LIDOCAINE VISCOUS 2% ... PO ONE ×3 (09:10)
[2022-10-18] MEDS ORDERED: MORPHINE SULFATE 4 MG/ML SYR IVP ONE (09:10)
[2022-10-18] MEDS ORDERED: ALUMINUM HYD/MAG/SIMETHICONE 30 ML UDC ONE (09:19)
[2022-10-18] MEDS ORDERED: DICYCLOMINE HCL LIQUID 10 MG/5 ML UDC ONE (09:19)
--- NOTE | 2022-10-18 09:30 | NUR ---
PT HAS BEEN MEDICATED PER PROVIDERS ORDERS.
--- NOTE | 2022-10-18 10:15 | NUR ---
PT STATE SHE IS NOT IN ANY PAIN AT THIS TIME. PAIN LEVEL IS AT A 0.
--- NOTE | 2022-10-18 10:28 | NUR ---
Per Alberto Song RN, NaCl 0.9 1L started at 0928 and stopped at 1028. ED director aware.
[2022-10-18] MEDS ORDERED: MAG355OR2 PO (10:33)
[2022-10-18] MEDS ORDERED: OMEP20EC11 PO (10:33)
[2022-10-18] MEDS ORDERED: BEN10 PO (10:33)
[2022-10-18 10:36] VITALS: BP 135/81; PULSE 69; RESP 17; TEMP 98; O2SAT 100
--- NOTE | 2022-10-18 11:50 | NUR ---
The patient's care was reviewed and supervised by [facility], RN.
== END 2022-10-18 10:35 | disposition home or self-care (01) ==
LOC: MED 06:44
DX: K29.70 Gastritis, unspecified, without bleeding (principal); D64.9 Anemia, unspecified; R11.2 Nausea with vomiting, unspecified; J45.909 Unspecified asthma, uncomplicated; Z79.899 Other long term (current) drug therapy; Z88.6 Allergy status to analgesic agent; Z88.8 Allergy status to other drugs, medicaments and biological substances
CPT/HCPCS: 36415; 76705; 80053; 81003; 81025; 83690; 85025; 96361; 96374; 99285; J2270; J7030; Q0092

== ENCOUNTER 2023-03-02 16:38 | Emergency (ER) | payer MEDICAID ==
[~2023-03-02] VITALS: Ht 162.6 cm; Wt 108.0 kg
[~2023-03-02 16:38] MED LIST changes: +BEN10 PO; +MAG355OR2 PO; +OMEP20EC11 PO
[2023-03-02 17:03] VITALS: BP 153/84; PULSE 101; RESP 20; TEMP 100; O2SAT 99
[2023-03-02] MEDS ORDERED: IBUPROFEN 600 MG TAB PO ONE (17:10)
[2023-03-02 17:32] LABS: FLU B ANTIGEN negative (NEGATIVE)
[2023-03-02] MEDS ORDERED: ACETAMINOPHEN EXTRA STRENGTH 500 MG TAB PO ONE (17:35)
[2023-03-02 17:41] LABS: FLU A ANTIGEN POSITIVE (NEGATIVE)
[2023-03-02] MEDS ORDERED: ACET-10509 PO (17:43)
[2023-03-02] MEDS ORDERED: ONDA-188 SL (17:43)
[2023-03-02] MEDS ORDERED: TAM75 PO (17:43)
[2023-03-02] MEDS ORDERED: BPM/-9 PO (17:43)
[2023-03-02 17:49] VITALS: BP 153/84; PULSE 101; RESP 20; TEMP 98; O2SAT 99
[2023-03-03] MEDS ORDERED: BPM/-9 PO (12:42)
[2023-03-03] MEDS ORDERED: ONDA-188 SL (12:42)
[2023-03-03] MEDS ORDERED: TAM75 PO (12:42)
[2023-03-03] MEDS ORDERED: ACET-10509 PO (12:42)
== END 2023-03-02 17:50 | disposition home or self-care (01) ==
LOC: MED 16:38
DX: J10.1 Influenza due to other identified influenza virus with other respiratory manifestations (principal); Z20.822 Contact with and (suspected) exposure to COVID-19; J45.909 Unspecified asthma, uncomplicated; Z79.899 Other long term (current) drug therapy
CPT/HCPCS: 99283